=== PATIENT | male | born 1960 | race African-American/Black ===

== ENCOUNTER 2017-07-04 10:40 | Emergency (ER) | payer MEDICAID ==
[~2017-07-04] VITALS: Ht 180.3 cm; Wt 89.0 kg
[2017-07-04 10:51] VITALS: BP 160/99
[2017-07-04] MEDS ORDERED: HYDROCODONE/ACETAMINOPHEN 5/325MG TABLET PO ONE (11:15)
[2017-07-04] MEDS ORDERED: ONDANSETRON 4MG ODT PO ONE (11:15)
== END 2017-07-04 14:09 | disposition home or self-care (01) ==
LOC: ER 10:40
DX: M25.512 Pain in left shoulder (principal); S42.032A Displaced fracture of lateral end of left clavicle, initial encounter for closed fracture; F17.210 Nicotine dependence, cigarettes, uncomplicated; I10 Essential (primary) hypertension; Z99.2 Dependence on renal dialysis
CPT/HCPCS: 29105; 73030; 93005; 93971; 99284; A4565; Q0162

== ENCOUNTER 2018-01-23 15:44 | Emergency (ER) | payer MEDICAID, OTHER ==
[~2018-01-23] VITALS: Ht 172.7 cm; Wt 91.0 kg
[2018-01-23 15:50] VITALS: BP 134/84
== END 2018-01-23 17:20 | disposition home or self-care (01) ==
LOC: ER 17:16
DX: L30.9 Dermatitis, unspecified (principal); I12.9 Hypertensive chronic kidney disease with stage 1 through stage 4 chronic kidney disease, or unspecified chronic kidney disease; N18.9 Chronic kidney disease, unspecified; Z99.2 Dependence on renal dialysis
CPT/HCPCS: 99283

== ENCOUNTER 2018-01-31 17:38 | Emergency (ER) | payer MEDICAID ==
[~2018-01-31] VITALS: Ht 180.3 cm; Wt 88.0 kg
[2018-01-31 17:48] VITALS: BP 163/99
== END 2018-01-31 18:42 | disposition home or self-care (01) ==
LOC: ER 18:23
DX: L03.211 Cellulitis of face (principal); I10 Essential (primary) hypertension; Z99.2 Dependence on renal dialysis
CPT/HCPCS: 99283

== ENCOUNTER 2020-04-01 15:41 | Emergency (ER) | payer MEDICAID ==
[~2020-04-01] VITALS: Ht 177.8 cm; Wt 89.0 kg
[2020-04-01 15:57] VITALS: BP 199/93
[2020-04-01] MEDS ORDERED: SILVER SULFADIAZINE 1% CREAM 25GM TOP ONE (17:30)
[2020-04-01] MEDS ORDERED: TETANUS, DIPHTHERIA, PERTUSSIS VAC/PF 0.5ML (>7YR OLD) IM ONE (17:30)
== END 2020-04-01 18:39 | disposition home or self-care (01) ==
LOC: ER 15:41
DX: T21.01XA Burn of unspecified degree of chest wall, initial encounter (principal); X12.XXXA Contact with other hot fluids, initial encounter; Y93.89 Activity, other specified; Y92.810 Car as the place of occurrence of the external cause; Z23 Encounter for immunization
CPT/HCPCS: 90471; 90715; 99283

== ENCOUNTER 2020-09-09 18:09 | Emergency (ER) | payer MEDICAID ==
[~2020-09-09] VITALS: Ht 188 cm; Wt 118.0 kg
[2020-09-09] MEDS ORDERED: TETANUS, DIPHTHERIA, PERTUSSIS VAC/PF 0.5ML (>7YR OLD) IM ONE (20:15)
[2020-09-09] MEDS ORDERED: BACITRACIN ZINC OINT UDPKT TOP ONE (20:15)
[2020-09-09] MEDS ORDERED: LIDOCAINE 1%/EPI 1:100,000 10 ML VIAL IJ ONE (20:15)
[2020-09-09] MEDS ORDERED: HYDROCODONE/ACETAMINOPHEN 5/325MG TABLET PO NR (22:30)
[2020-09-09 22:50] VITALS: BP 125/68
== END 2020-09-10 02:57 | disposition home or self-care (01) ==
LOC: ER 18:15
DX: S90.32XA Contusion of left foot, initial encounter (principal); W01.0XXA Fall on same level from slipping, tripping and stumbling without subsequent striking against object, initial encounter; Y93.89 Activity, other specified; Y92.89 Other specified places as the place of occurrence of the external cause; Z87.828 Personal history of other (healed) physical injury and trauma
CPT/HCPCS: 73630; 73700; 99284; J3490